=== PATIENT | female | born 1970 | race Caucasian/White ===

== ENCOUNTER 2025-08-01 20:58 | Emergency (ER) | payer BC, SELFPAY ==
[2025-08-01 21:01] VITALS: BP 170/118
[2025-08-01 21:43] LABS: Hematocrit 41.1 % (37.0-47.0); Hemoglobin 13.8 g/dL (12.0-16.0); Mean Corp Hgb Conc. 33.6 g/dL (33.0-37.0); Mean Corpuscular Volume 89.2 fL (81.0-99.0); Nucleated Red Blood Cells % 0 %; Platelet Count 300 10^3/uL (130-400); Red Cell Dist. Width 12.9 % (11.5-14.5)
[2025-08-01 21:47] LABS: Urine Character Clear (Clear)
[2025-08-01 21:59] LABS: Urine Squamous Cell >30 /LPF (Few)
[2025-08-01 22:00] LABS: HCG, Serum Qualitative Screen Negative; Urine Red Blood Cell 0-2 /HPF (0-2); Urine White Cell 21-25 /HPF (0-5)
[2025-08-01 22:06] LABS: ALT (SGPT) 39 U/L (0-35); AST (SGOT) 36 U/L (14-36); Albumin 4.9 g/dl (3.5-5.0); Alkaline Phosphatase 94 U/L (38-126); Blood Urea Nitrogen 22 mg/dl (7-17); Calcium 9.8 mg/dl (8.4-10.2); Carbon Dioxide 24 mmol/L (22-30); Chloride 100 mmol/L (98-107); Glucose 94 mg/dl (70-99); Potassium 4.5 mmol/L (3.5-5.1); Sodium 135 mmol/L (135-145); Total Protein 8.1 g/dl (6.3-8.2); eGFR 52.80
[2025-08-01 22:10] LABS: Troponin I < 0.012 ng/ml
[2025-08-02 00:59] VITALS: BMI 28.9
[2025-08-02 01:09] VITALS: BP 145/92
--- NOTE | 2025-08-02 01:23 | ED.GENMED ---
History of Present Illness
General
Chief Complaint: Abdominal Pain
Source: patient
Exam Limitations: none
Time Seen by Provider: 08/02/25 01:15
Nursing documentation reviewed up to this point in time: agreed with
Past History
Past History
ED Past Medical History: Hypothyroidism and Other (Psoriasis)
ED Past Surgical History: Cholecystectomy
Social History
Tobacco: Non-smoker
Alcohol: None
Drug: None
Personal:
Living: with family
Family History
Family History: Other (Noncontributory)
Course
Orders/Labs/Results
Orders:
Orders
08/01/25 21:05
Electrocardiogram (*1) Urgent
Reason for Study: Chest Pain
EKG- Treatment ONCE
Test Result ONCE
08/01/25 21:15
Complete Blood Count/With Diff Urgent
Comprehensive Metabolic Panel Urgent
HCG, Serum Qualitative Screen Urgent
Comment: Notify provider if positive test present
Troponin I Urgent
Urinalysis Reflex To Culture Urgent
Date Specimen was Collected: 08/01/25
Time Specimen was Collected: 21:06
Urine Microscopic Reflex Cult Urgent
Urine Culture Urgent
VINCENT Source: U
Specimen Description:
Date Specimen was Collected: 08/01/25
Time Specimen was Collected: 21:06
08/02/25 01:23
CT Abd/pel Without Iv Or Oral Urgent
Comment:
Reason For Exam: right flank pain
Abnormal Lab Results
08/01/25
21:15
WBC 11.2 H 10^3/uL
(4.8-10.8)
MPV 10.8 H fL
(7.4-10.4)
Absolute Neuts (auto) 6.8 H 10^3/uL
(1.4-6.5)
Absolute Monos (auto) 0.9 H 10^3/uL
(0.1-0.6)
BUN 22 H mg/dl
(7-17)
Creatinine 1.2 H mg/dL
(0.6-1.0)
ALT 39 H U/L
(0-35)
Leukocyte Esterase Rfl 1+ A
(Negative)
Urine WBC (Reflex) 21-25 A /HPF
(0-5)
Urine Bacteria (Reflex) Few A
(Negative)
08/01/25 21:15
08/01/25 21:15
Vital Signs
Initial and Last Documented VS:
Initial Vital Signs
Temp Pulse Resp BP Pulse Ox
98.2 F 87 16 170/118 100
08/01/25 21:01 08/01/25 21:01 08/01/25 21:01 08/01/25 21:01 08/01/25 21:01
Last Documented Vital Signs
Temp Pulse Resp BP Pulse Ox
98.5 F 66 18 122/85 97
08/02/25 01:09 08/02/25 03:00 08/02/25 01:09 08/02/25 02:00 08/02/25 02:45
*Pulse Oximetry
SaO2: 99
Oxygen Mode of Delivery: Room air
ED Attending Note
-
Portions of this chart may have been created with voice recognition software.� Occasional wrong word or��sound alike� substitutions may have occurred due to the inherent limitations of voice recognition software.
Discharge Plan
Departure
Patient with high blood pressure during this ER visit?: Yes
Condition: Good
Discharge Problem:
UTI (urinary tract infection), Acute right flank pain
Instructions: Urinary tract infections in adults
Prescriptions:
New
cephalexin 500 mg capsule
500 mg PO BID 7 Days Qty: 14 0RF
No Action
levothyroxine 200 MCG tablet
200 mcg PO DAILY AT 0700
methotrexate sodium 2.5 mg Tablet
10 mg PO QWEEK
Cosentyx 75 mg/0.5 mL Syringe
SC Q4W
Patient Comments:
pt is unsure of exact dose
Referrals:
Collins uHrst DO [Family Provider, Family Practice] - Call in 1-3 days for appt
Interventions
Interventions:
*General Assessment Last Done: 08/02/25 01:00
*Neglect/Abuse Screening Last Done: 08/01/25 21:01
*ED COVID-19 Vaccine History Last Done: 08/02/25 01:00
*ED Influenza Vaccine History Last Done: 08/02/25 01:00
[facility] Fall Risk Assessment Tool Last Done: 08/02/25 00:59
*Risk Screen - Suicide (C-SSRS) Last Done: 08/01/25 21:01
[facility]-Igetox[facility] Assessment Last Done: 08/02/25 01:14
Discharge Date and Time
Print Language: BOLIVIAN
[2025-08-02 02:00] VITALS: BP 122/85
== END 2025-08-02 04:28 | disposition home or self-care (01) ==
LOC: EMR 20:58
PROVIDERS: EMERGENCY PHYSICIAN Emergency Medicine; FAMILY PHYSICIAN Family Medicine
DX: N39.0 Urinary tract infection, site not specified (principal); R10.A1 Flank pain, right side; E03.9 Hypothyroidism, unspecified; Z90.49 Acquired absence of other specified parts of digestive tract
CPT/HCPCS: 99284; 74176; 80053; 81003; 81015; 84484; 84703; 85025; 87086; 93005